=== PATIENT | female | born 1945 | race Caucasian/White ===

== ENCOUNTER 2016-09-12 13:39 | Outpatient (RCR) | payer MEDICARE, OTHER ==
[2016-09-12 10:59] LABS: BASOPHILS % (AUTO) 0 % (0-2); EOSINOPHILS % (AUTO) 0 % (0-4); LYMPHOCYTES # (AUTO) 1.5 X10^3; MEAN PLATELET VOLUME 8.5 FL (6.0-9.5); MONOCYTES # (AUTO) 0.6 X10^3; MONOCYTES % (AUTO) 8 % (3-11); NEUTROPHILS # (AUTO) 4.9 X10^3; NEUTROPHILS % (AUTO) 70 % (51-67); PLATELET COUNT 400 10^3uL (150-450); WHITE BLOOD COUNT 7.07 10^3uL (4.0-11.0)
[2016-09-12 11:01] LABS: MEAN CORPUSCULAR HEMOGLOBIN 32.8 PG (26.0-34.0); MEAN CORPUSCULAR VOLUME 103 FL (80-100)
[~2016-09-12 13:39] MED LIST: ASPI-586 PO; ATOR80TA73 PO; CALC-147 PO; CLIN-78 PO; CTLP20T PO; CYAN1TAB26 PO; DEXA4TAB PO; DEXA5DRO OU; DIPH1TAB45 PO; FENT1PAT9 TD; FERR-74 PO; FURO40TA4 PO; HYDR-3702 PO; LACT1CAP62 PO; LETR2.5T5 PO; LOSA1TAB69 PO; LOSA1TAB70 PO; MAGN400T26 PO; METF-474 PO; METF1000 PO; METO25TA60 PO; MULT-1026 PO; OMEP20TA PO; ONDA8TAB6 PO; POTA10CA43 PO; PRED20TA PO; [UNRECOGNIZED DRUG - OTHER] PO
[2016-09-17 13:42] LABS: MEAN CORPUSCULAR HGB CONC 31.8 g/dL (31.0-37.0); MEAN PLATELET VOLUME 8.7 FL (6.0-9.5); PLATELET COUNT 364 10^3uL (150-450); WHITE BLOOD COUNT 5.96 10^3uL (4.0-11.0)
[2016-09-17 13:51] LABS: MEAN CORPUSCULAR HEMOGLOBIN 32.7 PG (26.0-34.0); MEAN CORPUSCULAR VOLUME 103 FL (80-100)
[2016-09-17 13:52] LABS: BAND NEUTROPHILS % 0 % (0-6); EOSINOPHILS % 3 % (0-4); LYMPHOCYTES # 1.2 #; MONOCYTES # 0.5 #; MONOCYTES % 9 % (3-11); SEGMENTED NEUTROPHILS % 67 % (51-67); TOTAL CELLS COUNTED 100
[2016-09-17 13:53] LABS: ANISOCYTOSIS SLIGHT; RBC MORPH SEE REFERENCE (NORMAL)
[2016-09-17 13:54] LABS: ALBUMIN 4.7 g/dL (3.4-5.0); ANION GAP 18.8 MEQ/L (3-15); CALCULATED IONIZED CALCIUM 3.6 mg/dL (3.8-4.6); MAGNESIUM* 2.5 mg/dL (1.6-2.3); PHOSPHORUS 4.5 mg/dL (2.4-4.9); TOTAL PROTEIN 9.7 g/dL (6.4-8.5)
[2016-09-24 11:45] LABS: MEAN CORPUSCULAR HGB CONC 32.6 g/dL (31.0-37.0); MEAN PLATELET VOLUME 8.9 FL (6.0-9.5); PLATELET COUNT 314 10^3uL (150-450); WHITE BLOOD COUNT 20.26 10^3uL (4.0-11.0)
[2016-09-24 11:52] LABS: MEAN CORPUSCULAR HEMOGLOBIN 33.6 PG (26.0-34.0); MEAN CORPUSCULAR VOLUME 103 FL (80-100)
[2016-09-24 12:05] LABS: BAND NEUTROPHILS % 12 % (0-6); EOSINOPHILS % 0 % (0-4); LYMPHOCYTES # 2.4 #; MONOCYTES # 0.2 #; MONOCYTES % 1 % (3-11); RBC MORPH NORMAL (NORMAL); SEGMENTED NEUTROPHILS % 75 % (51-67); TOTAL CELLS COUNTED 100
[2016-09-24 12:13] LABS: ALBUMIN 4.4 g/dL (3.4-5.0); ANION GAP 16.8 MEQ/L (3-15); CALCULATED IONIZED CALCIUM 3.9 mg/dL (3.8-4.6); MAGNESIUM* 1.6 mg/dL (1.6-2.3); PHOSPHORUS 2.3 mg/dL (2.4-4.9); TOTAL PROTEIN 9.6 g/dL (6.4-8.5)
[2016-10-08 09:15] LABS: MEAN CORPUSCULAR HGB CONC 33.3 g/dL (31.0-37.0); MEAN PLATELET VOLUME 8.7 FL (6.0-9.5); PLATELET COUNT 359 10^3uL (150-450); WHITE BLOOD COUNT 7.96 10^3uL (4.0-11.0)
[2016-10-08 09:33] LABS: MEAN CORPUSCULAR HEMOGLOBIN 34.2 PG (26.0-34.0); MEAN CORPUSCULAR VOLUME 103 FL (80-100)
[2016-10-08 09:50] LABS: BAND NEUTROPHILS % 1 % (0-6); EOSINOPHILS % 2 % (0-4); LYMPHOCYTES # 2.4 #; MONOCYTES # 0.6 #; MONOCYTES % 9 % (3-11); RBC MORPH SEE REFERENCE (NORMAL); SEGMENTED NEUTROPHILS % 58 % (51-67); TOTAL CELLS COUNTED 100
[2016-10-15 09:13] LABS: MEAN CORPUSCULAR HGB CONC 32.1 g/dL (31.0-37.0); MEAN PLATELET VOLUME 8.3 FL (6.0-9.5); PLATELET COUNT 382 10^3uL (150-450); WHITE BLOOD COUNT 7.15 10^3uL (4.0-11.0)
[2016-10-15 09:16] LABS: MEAN CORPUSCULAR HEMOGLOBIN 32.9 PG (26.0-34.0); MEAN CORPUSCULAR VOLUME 103 FL (80-100)
[2016-10-15 09:19] LABS: BAND NEUTROPHILS % 1 % (0-6); EOSINOPHILS % 6 % (0-4); LYMPHOCYTES # 2.9 #; MONOCYTES # 0.6 #; MONOCYTES % 9 % (3-11); RBC MORPH SEE REFERENCE (NORMAL); SEGMENTED NEUTROPHILS % 42 % (51-67); TOTAL CELLS COUNTED 100
[2016-10-15 09:44] LABS: ALBUMIN 4.4 g/dL (3.4-5.0); ANION GAP 18.6 MEQ/L (3-15); CALCULATED IONIZED CALCIUM 3.7 mg/dL (3.8-4.6); PHOSPHORUS 4.5 mg/dL (2.4-4.9); TOTAL PROTEIN 9.5 g/dL (6.4-8.5)
[2016-10-22 09:09] LABS: MEAN CORPUSCULAR HGB CONC 32.4 g/dL (31.0-37.0); MEAN PLATELET VOLUME 8.6 FL (6.0-9.5); PLATELET COUNT 328 10^3uL (150-450); WHITE BLOOD COUNT 21.35 10^3uL (4.0-11.0)
[2016-10-22 09:19] LABS: MEAN CORPUSCULAR HEMOGLOBIN 34.3 PG (26.0-34.0); MEAN CORPUSCULAR VOLUME 106 FL (80-100)
[2016-10-22 09:25] LABS: BAND NEUTROPHILS % 14 % (0-6); EOSINOPHILS % 0 % (0-4); MONOCYTES # 1.1 #; MONOCYTES % 5 % (3-11); SEGMENTED NEUTROPHILS % 67 % (51-67); TOTAL CELLS COUNTED 100
[2016-10-22 09:26] LABS: RBC MORPH NORMAL (NORMAL)
[2016-10-29 09:34] LABS: MEAN CORPUSCULAR HGB CONC 34.1 g/dL (31.0-37.0); MEAN PLATELET VOLUME 8.7 FL (6.0-9.5); PLATELET COUNT 318 10^3uL (150-450); WHITE BLOOD COUNT 9.64 10^3uL (4.0-11.0)
[2016-10-29 09:37] LABS: MEAN CORPUSCULAR HEMOGLOBIN 34.7 PG (26.0-34.0); MEAN CORPUSCULAR VOLUME 102 FL (80-100)
[2016-10-29 09:39] LABS: BASOPHILS % (AUTO) 0 % (0-2); EOSINOPHILS # (AUTO) 0.1 10^3uL; EOSINOPHILS % (AUTO) 1 % (0-4); LYMPHOCYTES # (AUTO) 2.4 X10^3; MONOCYTES # (AUTO) 0.7 X10^3; MONOCYTES % (AUTO) 8 % (3-11); NEUTROPHILS # (AUTO) 6.4 X10^3; NEUTROPHILS % (AUTO) 67 % (51-67)
[2016-11-05 09:28] LABS: MEAN CORPUSCULAR HGB CONC 32.7 g/dL (31.0-37.0); MEAN PLATELET VOLUME 8.4 FL (6.0-9.5); PLATELET COUNT 363 10^3uL (150-450)
[2016-11-05 09:36] LABS: MEAN CORPUSCULAR HEMOGLOBIN 33.6 PG (26.0-34.0); MEAN CORPUSCULAR VOLUME 103 FL (80-100)
[2016-11-05 09:48] LABS: BAND NEUTROPHILS % 2 % (0-6); EOSINOPHILS % 2 % (0-4); LYMPHOCYTES # 2.2 #; MONOCYTES # 0.4 #; MONOCYTES % 6 % (3-11); SEGMENTED NEUTROPHILS % 59 % (51-67); TOTAL CELLS COUNTED 100
[2016-11-05 09:49] LABS: RBC MORPH NORMAL (NORMAL)
[2016-11-05 10:10] LABS: ALBUMIN 4.3 g/dL (3.4-5.0); ANION GAP 16.3 MEQ/L (3-15); CALCULATED IONIZED CALCIUM 3.9 mg/dL (3.8-4.6); MAGNESIUM* 1.8 mg/dL (1.6-2.3); PHOSPHORUS 4.4 mg/dL (2.4-4.9); TOTAL PROTEIN 8.9 g/dL (6.4-8.5)
[2016-11-12 11:10] LABS: BASOPHILS % (AUTO) 0 % (0-2); EOSINOPHILS # (AUTO) 0.2 10^3uL; EOSINOPHILS % (AUTO) 2 % (0-4); MEAN CORPUSCULAR HGB CONC 32.1 g/dL (31.0-37.0); MEAN PLATELET VOLUME 8.8 FL (6.0-9.5); MONOCYTES # (AUTO) 1.1 X10^3; MONOCYTES % (AUTO) 14 % (3-11); NEUTROPHILS # (AUTO) 4.6 X10^3; NEUTROPHILS % (AUTO) 58 % (51-67); PLATELET COUNT 395 10^3uL (150-450); WHITE BLOOD COUNT 7.94 10^3uL (4.0-11.0)
[2016-11-12 11:14] LABS: MEAN CORPUSCULAR HEMOGLOBIN 33.9 PG (26.0-34.0); MEAN CORPUSCULAR VOLUME 105 FL (80-100)
[2016-11-19 09:01] LABS: MEAN CORPUSCULAR HGB CONC 32.9 g/dL (31.0-37.0); MEAN PLATELET VOLUME 8.7 FL (6.0-9.5); PLATELET COUNT 382 10^3uL (150-450); WHITE BLOOD COUNT 7.14 10^3uL (4.0-11.0)
[2016-11-19 09:02] LABS: MEAN CORPUSCULAR HEMOGLOBIN 34.3 PG (26.0-34.0); MEAN CORPUSCULAR VOLUME 104 FL (80-100)
[2016-11-19 09:58] LABS: BAND NEUTROPHILS % 2 % (0-6); EOSINOPHILS % 3 % (0-4); LYMPHOCYTES # 1.1 #; MONOCYTES # 0.5 #; MONOCYTES % 7 % (3-11); RBC MORPH SEE REFERENCE (NORMAL); SEGMENTED NEUTROPHILS % 73 % (51-67); TOTAL CELLS COUNTED 100
[2016-11-26 10:43] LABS: MEAN CORPUSCULAR HGB CONC 32.1 g/dL (31.0-37.0); MEAN PLATELET VOLUME 8.6 FL (6.0-9.5); PLATELET COUNT 398 10^3uL (150-450); WHITE BLOOD COUNT 5.25 10^3uL (4.0-11.0)
[2016-11-26 10:52] LABS: MEAN CORPUSCULAR HEMOGLOBIN 33.8 PG (26.0-34.0); MEAN CORPUSCULAR VOLUME 105 FL (80-100)
[2016-11-26 11:28] LABS: BAND NEUTROPHILS % 3 % (0-6); EOSINOPHILS % 4 % (0-4); LYMPHOCYTES # 1.1 #; MONOCYTES # 0.6 #; MONOCYTES % 11 % (3-11); RBC MORPH SEE REFERENCE (NORMAL); SEGMENTED NEUTROPHILS % 60 % (51-67); TOTAL CELLS COUNTED 100
[2016-12-03 16:55] LABS: MEAN PLATELET VOLUME 8.3 FL (6.0-9.5); PLATELET COUNT 362 10^3uL (150-450); WHITE BLOOD COUNT 4.87 10^3uL (4.0-11.0)
[2016-12-03 17:28] LABS: ANION GAP 14.8 MEQ/L (3-15); CALCULATED IONIZED CALCIUM 3.8 mg/dL (3.8-4.6); MAGNESIUM* 2.1 mg/dL (1.6-2.3); PHOSPHORUS 2.6 mg/dL (2.4-4.9); TOTAL PROTEIN 8.4 g/dL (6.4-8.5)
[2016-12-03 17:45] LABS: MEAN CORPUSCULAR HEMOGLOBIN 32.3 PG (26.0-34.0); MEAN CORPUSCULAR HGB CONC 31.2 g/dL (31.0-37.0); MEAN CORPUSCULAR VOLUME 104 FL (80-100)
[2016-12-03 17:47] LABS: ANISOCYTOSIS SLIGHT; BAND NEUTROPHILS % 0 % (0-6); EOSINOPHILS % 2 % (0-4); LYMPHOCYTES # 1.1 #; MONOCYTES # 0.3 #; MONOCYTES % 8 % (3-11); RBC MORPH SEE REFERENCE (NORMAL); SEGMENTED NEUTROPHILS % 67 % (51-67); TOTAL CELLS COUNTED 100
[2016-12-10 17:06] LABS: MEAN CORPUSCULAR HGB CONC 32.4 g/dL (31.0-37.0); MEAN PLATELET VOLUME 8.4 FL (6.0-9.5); PLATELET COUNT 478 10^3uL (150-450); WHITE BLOOD COUNT 8.86 10^3uL (4.0-11.0)
[2016-12-10 17:19] LABS: MEAN CORPUSCULAR HEMOGLOBIN 33.2 PG (26.0-34.0); MEAN CORPUSCULAR VOLUME 102 FL (80-100)
[2016-12-10 18:39] LABS: BAND NEUTROPHILS % 2 % (0-6); EOSINOPHILS % 0 % (0-4); LYMPHOCYTES # 1.9 #; MONOCYTES % 12 % (3-11); RBC MORPH SEE REFERENCE (NORMAL); SEGMENTED NEUTROPHILS % 65 % (51-67); TOTAL CELLS COUNTED 100
== END 2016-12-11 | disposition home or self-care (01) ==
LOC: LAB 13:39
PROVIDERS: ATTEND Internal Medicine Hematology & Oncology
DX: C77.3 Secondary and unspecified malignant neoplasm of axilla and upper limb lymph nodes (principal); C79.51 Secondary malignant neoplasm of bone; C50.511 Malignant neoplasm of lower-outer quadrant of right female breast; Z17.1 Estrogen receptor negative status [ER-]
CPT/HCPCS: 36415; 80053; 83615; 83735; 84100; 85007; 85025; 85027

== ENCOUNTER → 2016-10-29 | Outpatient (CLI) | payer MEDICARE, OTHER | LOC: RAD 16:24 | PROVIDERS: ATTEND Internal Medicine Hematology & Oncology | DX: R22.0 Localized swelling, mass and lump, head (principal) | CPT/HCPCS: 70553; A9579 ==

== ENCOUNTER 2016-11-05 09:45 | Outpatient (RCR) | payer MEDICARE, OTHER | END 2016-11-16 16:15 | disposition home or self-care (01) | LOC: PT 09:45 | PROVIDERS: ATTEND Internal Medicine Hematology & Oncology | DX: M25.511 Pain in right shoulder (principal); M25.512 Pain in left shoulder | CPT/HCPCS: 97110; 97162; 97163; G8984; G8985 ==

== ENCOUNTER → 2016-11-27 | Outpatient (CLI) | payer MEDICARE, OTHER | LOC: LAB 07:35 | PROVIDERS: ATTEND Family Medicine | DX: E11.9 Type 2 diabetes mellitus without complications (principal); E78.4 Other hyperlipidemia | CPT/HCPCS: 36415; 80061; 83036 ==

== ENCOUNTER → 2017-01-31 | Outpatient (CLI) | payer MEDICARE, OTHER | LOC: RAD 14:20 | PROVIDERS: ATTEND Internal Medicine Hematology & Oncology | DX: C77.3 Secondary and unspecified malignant neoplasm of axilla and upper limb lymph nodes (principal); C79.51 Secondary malignant neoplasm of bone; C50.511 Malignant neoplasm of lower-outer quadrant of right female breast; Z17.1 Estrogen receptor negative status [ER-]; Z03.89 Encounter for observation for other suspected diseases and conditions ruled out | CPT/HCPCS: 93306 ==